=== PATIENT | female | born 1945 | race Caucasian/White ===

== ENCOUNTER → 2020-06-02 | Outpatient (CLI) | payer OTHER ==
[~2020-06-02] MED LIST: BENICAR40 MG PO; DITROPAN 5 MG TA5 MG PO; DOCUSATE SODIU250 MG PO; HYDROCODON-ACE1 EAC2 PO; HYDROCODONE-AC1 EACH PO; IBUPROFEN600 MG PO; LEVOTHYROXINE25 MC1 PO; METOPROLOL SUCC50 MG PO; OMEPRAZOLE20 M1 PO; TRIAMTERENE-HC1 EAC1 PO; ZOCOR20 MG PO
[2020-06-02 09:53] LABS: HEMOGLOBIN 12.1 gm/dl (12.3-15.3); RED BLOOD COUNT 4.06 M/UL (4.00-5.10); WHITE BLOOD COUNT 6.3 K/UL (4.5-11.0)
[2020-06-02 10:11] LABS: BUN/CREATININE RATIO 23 (0-10)
== END ==
LOC: OPSV2 08:44
PROVIDERS: Anesthesiology; Obstetrics & Gynecology
DX: Z01.818 Encounter for other preprocedural examination (principal); N81.9 Female genital prolapse, unspecified
CPT/HCPCS: 36415; 71046; 80048; 81001; 85025; 93005

== ENCOUNTER 2020-06-09 06:27 | Day surgery (SDC) | payer OTHER ==
[~2020-06-09] VITALS: Ht 162.6 cm; Wt 76.2 kg
[~2020-06-09 06:27] MED LIST changes: -DITROPAN 5 MG TA5 MG PO; -DOCUSATE SODIU250 MG PO; -HYDROCODONE-AC1 EACH PO; -IBUPROFEN600 MG PO
[2020-06-09] MEDS ORDERED: DOCUSATE SODIU250 MG PO (07:38)
[2020-06-09] MEDS ORDERED: HYDROCODONE-AC1 EACH PO ×2 (07:38→13:41)
[2020-06-09] MEDS ORDERED: DITROPAN 5 MG TA5 MG PO (07:38)
[2020-06-09] MEDS ORDERED: IBUPROFEN600 MG PO (07:38)
[2020-06-10 03:27] LABS: HEMOGLOBIN 9.6 gm/dl (12.3-15.3)
--- NOTE | 2020-06-10 10:48 | NUR ---
AT 0700AM PATIENT HAD NO BLEEDING AND INCISION SITES WERE WELL APPROXIMATED WITHIN NORMAL LIMITS. AT 1041AM PATIENT WAS DISCHARGED. OFFERED HER A WHEELCHAIR, AND SHE STATED SHE DID NOT WANT ONE. PATIENT AMBULATED OFF FLOOR WITH DAUGHTER. THEN SHE WAS ESCORTED TO [facility].
== END 2020-06-10 10:41 | disposition home or self-care (01) ==
LOC: OR 06:27 → OB 10:50 → OR 06-10 10:41
PROVIDERS: Obstetrics & Gynecology
DX: N72 Inflammatory disease of cervix uteri (principal); N70.11 Chronic salpingitis; N83.8 Other noninflammatory disorders of ovary, fallopian tube and broad ligament; I10 Essential (primary) hypertension; K44.9 Diaphragmatic hernia without obstruction or gangrene; K21.9 Gastro-esophageal reflux disease without esophagitis; E03.9 Hypothyroidism, unspecified; M19.90 Unspecified osteoarthritis, unspecified site; Z82.49 Family history of ischemic heart disease and other diseases of the circulatory system; Z79.899 Other long term (current) drug therapy; Z87.891 Personal history of nicotine dependence
CPT/HCPCS: 36415; 85014; 85018; C1769; J0690; J1100; J2405; J2704; J3010; J7050; J7120